=== PATIENT | female | born 1935 | race American Indian/Alaskan Native ===

== ENCOUNTER 2018-05-17 11:09 | Emergency (ER) | payer OTHER, MEDICARE ==
[2018-05-17 11:36] VITALS: BP 145/61
[2018-05-17] MEDS ORDERED: Acetaminophen 325 MG Tab PO ONE (11:50)
[2018-05-17] MEDS ORDERED: Acetaminophen/HYDROcodone 325-5 MG Tab PO ONE (11:50)
--- NOTE | 2018-05-17 15:40 | ER ---
SUBJECTIVE: The patient is an 83-year-old female who comes in with right lower leg pain, began almost a week ago when she hit her right lower leg ankle area on a chair. She went into the clinic this past week I believe on . She had an x-ray and thinks she had an ultrasound but is not sure, but at any rate, whatever she had was all negative, and they told her no fractures or clot. She is on warfarin already. They also put her on Keflex. She has no chest pain or shortness of breath. No other injuries or new trauma. No new falls. No fevers. She comes in today just because it is still very tender. PAST MEDICAL HISTORY: Significant for arrhythmias, she is on warfarin for this; varicose veins with stripping; multiple pregnancies. She has OA. She has hypertension. MEDICATIONS: Current medications include: 1. Diltiazem 180 mg p.o. daily. 2. Warfarin 5 mg p.o. daily. 3. Cephalexin 500 mg every 8 hours was started this last week on ; today would be about day 2-12/03. ALLERGIES: She is allergic to codeine; she does not recall why. Latex causes her rash. SOCIAL HISTORY: No tobacco or alcohol. No other substance abuse. REVIEW OF SYSTEMS: No fevers or chills. No shortness of breath or chest pain. No new falls or trauma. Has continued right lower extremity pain as already discussed in the HPI. No new changes, otherwise. No bowel or bladder changes. No bleeding. OBJECTIVE: Vital Signs: She is afebrile. Heart rate 70, blood pressure is 145/61, respiratory rate 18, and oxygen is 97% on room air. General: Pleasant, smiling, and interactive. Head: Normocephalic and atraumatic. Chest: Clear. Cardiovascular: RRR. Extremities: Examination of bilateral lower extremities. The left is fairly not remarkable. She does have some chronic skin discoloration and changes. The right lower extremity has more tenderness, however. She appears to have mild cellulitis, and she also has chronic skin discoloration and changes. She is able to wiggle her toes and move her ankle. She does not have any compartment syndrome. No lacerations or repairs needed. Sent the patient for a Duplex of the right lower extremity. It did come back negative for DVT. Also, checked her Coumadin level. Her INR is at 1.6. The patient had not taken her pill yet today. EMERGENCY ROOM COURSE: She was given a tablet of Tylenol and one tablet of hydrocodone 5/325. ASSESSMENT: 1. Cellulitis, already on treatment, of right lower extremity. 2. Right lower extremity contusion a week ago. Ultrasound today showing negative clot, already on antibiotics and warfarin. PLAN: Continue with home medications including antibiotics and warfarin. Elevate the leg as much as possible when not in use, but is okay to be active. Can apply Jorge wrap if she desires, apply warm moist packs. Follow up with her PCP early to mid week, this coming week, for recheck or sooner if needed. Return for any emergent issues. [facility] /[id number]
== END 2018-05-17 13:37 | disposition home or self-care (01) ==
LOC: DL.ED 11:09
DX: S80.11XA Contusion of right lower leg, initial encounter (principal); L03.115 Cellulitis of right lower limb; Z79.899 Other long term (current) drug therapy; Z79.01 Long term (current) use of anticoagulants; Z88.5 Allergy status to narcotic agent; Z91.040 Latex allergy status; W22.8XXA Striking against or struck by other objects, initial encounter
CPT/HCPCS: 36415; 85610; 93971; 99284; A9270

== ENCOUNTER 2020-10-29 21:13 | Emergency (ER) | payer BC, MEDICARE ==
--- NOTE | 2020-10-29 21:28 | CT ---
PROCEDURE INFORMATION: Exam: CT Cervical Spine Without Contrast Exam date and time: 10/29/2020 8:58 PM Age: 85 years old Clinical indication: Fall/pain TECHNIQUE: Imaging protocol: Computed tomography images of the cervical spine without contrast. Radiation optimization: All CT scans at this facility use at least one of these dose optimization techniques: automated exposure control; mA and/or kV adjustment per patient size (includes targeted exams where dose is matched to clinical indication); or iterative reconstruction. COMPARISON: No relevant prior studies available. FINDINGS: Bones/joints: No acute fracture or traumatic subluxation. No spondylolisthesis. The atlantooccipital and atlantoaxial articulations are intact. Occipital condyles are intact. Facet joint alignments are maintained. Discs/Spinal canal/Neural foramina: Age-related degenerative disc disease. Multilevel degenerative changes of the cervical spine. Prevertebral Space: No prevertebral soft tissue swelling. Soft tissues: Unremarkable. Lungs: Lung apices are normal. IMPRESSION: No acute fracture or traumatic subluxation.
[2020-10-29 21:33] VITALS: BP 152/63; PULSE 86
--- NOTE | 2020-10-29 21:34 | CT ---
PROCEDURE INFORMATION: Exam: CT Pelvis Without Contrast; Skeletal Exam date and time: 10/29/2020 8:58 PM Age: 85 years old Clinical indication: Other: Fall/pain; Additional info: Fell TECHNIQUE: Imaging protocol: Computed tomography images of the pelvis without contrast. Exam focused on the skeletal structures. Radiation optimization: All CT scans at this facility use at least one of these dose optimization techniques: automated exposure control; mA and/or kV adjustment per patient size (includes targeted exams where dose is matched to clinical indication); or iterative reconstruction. COMPARISON: No relevant prior studies available. FINDINGS: Bones/joints: Diffuse osteopenia. Soft tissues: Sebaceous cyst involving the subcutaneous fat of the right inferior gluteal fold. Measures 3.0 x 2.1 cm. IMPRESSION: No acute abnormality.
--- NOTE | 2020-10-29 21:37 | CT ---
PROCEDURE INFORMATION: Exam: CT Head Without Contrast Exam date and time: 10/29/2020 8:58 PM Age: 85 years old Clinical indication: Other: On coumadin; Additional info: Fell TECHNIQUE: Imaging protocol: Computed tomography of the head without contrast. Radiation optimization: All CT scans at this facility use at least one of these dose optimization techniques: automated exposure control; mA and/or kV adjustment per patient size (includes targeted exams where dose is matched to clinical indication); or iterative reconstruction. COMPARISON: CT Head wo Cont 07/09/2019 5:10 PM FINDINGS: Brain: Small amount of subarachnoid hemorrhage involving the sulci of the right cingulate gyrus. Age-related involutional changes and chronic microvascular ischemic disease. No evidence for acute transcortical infarct. No mass effect or midline shift. No acute intraparenchymal hemorrhage. Basal cisterns are patent. Cerebral ventricles: No ventriculomegaly. Bones/joints: No acute calvarial fracture. Paranasal sinuses: Visualized sinuses are unremarkable. No fluid levels. Mastoid air cells: Visualized mastoid air cells are well aerated. Soft tissues: Right parietal scalp swelling. No radiopaque foreign body. IMPRESSION: 1. Small amount of subarachnoid hemorrhage involving the sulci of the right cingulate gyrus. 2. Right parietal scalp swelling. No radiopaque foreign body. No acute calvarial fracture. The findings were verbally communicated via telephone conference with MIRANDA DANIELS at 9:30 PM ASSISTANT VICE PRESIDENT on 10/29/2020. The findings were acknowledged and understood.
--- NOTE | 2020-10-29 21:47 | EDM.PDOC ---
ED HPI GENERAL MEDICAL PROBLEM - General Chief Complaint: Head Injury Stated Complaint: AMBULANCE Time Seen by Provider: 10/29/20 21:36 Source of Information: Reports: Patient History Limitations: Reports: No Limitations - History of Present Illness INITIAL COMMENTS - FREE TEXT/NARRATIVE: states tripped outside and fell hitting back of head no LOC tried to crawl on knees hard to get up but finally help arrived. - Related Data Allergies Allergy/AdvReac Type Severity Reaction Status Date / Time codeine Allergy Cannot Verified 07/09/19 17:39 Remember latex Allergy Rash Verified 07/09/19 17:39 Home Meds: Home Meds Diltiazem [Tiazac] 180 mg PO DAILY 04/12/15 [History] Warfarin [Coumadin] 5 mg PO DAILY 04/12/15 [History] Past Medical History Cardiovascular History: Reports: Arrhythmia Other Cardiovascular History: varicose veins with stripping Endocrine/Metabolic History: Reports: Other (See Below) Other Endocrine/Metabolic History: prediabetes - Past Surgical History GI Surgical History: Reports: Cholecystectomy Social & Family History - Family History Family Medical History: No Pertinent Family History - Caffeine Use Caffeine Use: Reports: Coffee - Living Situation & Occupation Living situation: Reports: with Family Occupation: Retired ED ROS GENERAL - Review of Systems Review Of Systems: Comprehensive ROS is negative, except as noted in HPI. ED EXAM, HEAD INJURY - Physical Exam Exam: See Below Exam Limited By: No Limitations General Appearance: Alert, WD/WN, Mild Distress, Other (DISCOMFORT) Head: Scalp Lacerations, Scalp Swelling, Scalp Tenderness, Other ([place] REGION). No: Contreras's Sign, Raccoon Eyes Nexus Criteria: No: Posterior, Midline Cervical Tenderness, Evidence of Intoxication, Altered Level of Consciousness, Focal Neurological Deficit, Painful Distraction Injuries Eyes: Bilateral Eye: PERRL (PUPILS ESS er @ 4MM) Ears: Hearing Grossly Normal Throat/Mouth: Normal Voice, No Airway Compromise Neck: Non-Tender, Full Range of Motion Respiratory: No Respiratory Distress Cardiovascular: Regular Rate, Rhythm GI/Abdominal Exam: Soft, Non-Tender (Female) Exam: Deferred Rectal (Female) Exam: Deferred Extremities: Other (knees without abrasion, minimal swelling, ROM without problem, NV wnl) Neurologic: No Motor/Sensory Deficits, Alert, Normal Mood/Affect, Oriented x 3 Skin: Normal Color, Warm/Dry - [place] Coma Score Best Eye Response ([place]): (4) Open Spontaneously Best Verbal Response (Smita): (5) Oriented Best Motor Response ([place]mita): (6) Obeys Commands [place] Total: 15 ED LACERATION/WOUND & LEONARDA PROC - Laceration/Wound Repair Occipital Lac/wound length in cm: 1 (occiput region) Appearance: Subcutaneous, Irregular, Clean Skin Prep: Chlorhexidine (Hibiciens) Saline irrigation (cc's): 20 Exploration/Debridement/Repair: Wound Explored, In a Bloodless Field, No Foreign Material Found Closed with: Nicholas # of Sutures: 2 (nicholas) Sterile Dressing Applied: None Tetanus Status Addressed: Yes Complications: No Course - Vital Signs Last Recorded V/S: Last Vital Signs Temp 36.9 C 10/29/20 21:00 Pulse 86 10/29/20 21:00 Resp 18 10/29/20 21:00 BP 152/63 H 10/29/20 21:00 Pulse Ox 96 10/29/20 21:00 - Orders/Labs/Meds Orders: Active Orders 24 hr Category Date Time Status INR,PT,PROTHROMBIN TIME [COAG] Stat Lab 10/29/20 21:56 Ordered PTT,PARTIAL THROMBOPLSTIN TIME [COAG] Stat Lab 10/29/20 21:56 Ordered Phytonadione [AquaMephyton] 10 mg Med 10/29/20 22:21 Ordered Sodium Chloride 0.9% [Normal Saline] 50 ml IV NOW Labs: Laboratory Tests 10/29/20 10/29/20 Range/Units 21:40 21:40 WBC 7.8 (5.0-10.0) 10^3/uL RBC 4.29 (4.2-5.4) 10^6/uL Hgb 11.9 L (12.0-16.0) g/dL Hct 36.6 L (37.0-47.0) % MCV 85.3 D (80-100) fL MCH 27.7 (27.0-34.0) pg MCHC 32.5 L (33.0-35.0) g/dL Plt Count 168 (150-450) 10^3/uL Neut % (Auto) 80.1 H (42.2-75.2) % Lymph % (Auto) 11.4 L (20.5-50.1) % Eagle % (Auto) 7.6 (2-8) % Eos % (Auto) 0.6 L (1.0-3.0) % Baso % (Auto) 0.3 (0.0-1.0) % Sodium 137 (136-145) mmol/L Potassium 3.6 (3.5-5.1) mmol/L Chloride 103 (98-107) mmol/L Carbon Dioxide 26 (21-32) mmol/L Anion Gap 11.6 (7-13) mEq/L BUN 9 (7-18) mg/dL Creatinine 0.64 (0.55-1.02) mg/dL Est Cr Clr Drug Dosing 50.83 mL/min Estimated GFR (MDRD) > 60 BUN/Creatinine Ratio 14.1 (No establ ref range) Glucose 142 H (74-99) mg/dL Calcium 8.7 (8.5-10.1) mg/dL Total Bilirubin 0.4 (0.2-1.0) mg/dL AST 28 (15-37) U/L ALT 25 (14-59) U/L Alkaline Phosphatase 150 H (46-116) U/L Total Protein 7.4 (6.4-8.2) g/dL Albumin 3.2 L (3.4-5.0) g/dL Globulin 4.2 Albumin/Globulin Ratio 0.76 - Re-Assessments/Exams Free Text/Narrative Re-Assessment/Exam: 10/29/20 22:[address] Slime WEBBER @ [facility] who kindly accepted pt. Departure - Departure Time of Disposition: 22:23 Disposition: DC/Tfer to Acute Hospital 02 Condition: Fair Clinical Impression: Subarachnoid hemorrhage Occipital scalp laceration Qualifiers: Encounter type: initial encounter Qualified Code(s): S01.01XA - Laceration without foreign body of scalp, initial encounter - Discharge Information Forms: Interfacility Transfer EMTALA Sepsis Event Note (ED) - Evaluation Sepsis Screening Result: No Definite Risk - Focused Exam Vital Signs: Vital Signs Temp Pulse Resp BP Pulse Ox 10/29/20 21:00 36.9 C 86 18 152/63 H 96 - My Orders Last 24 Hours: My Active Orders 10/29/20 21:56 INR,PT,PROTHROMBIN TIME [COAG] Stat PTT,PARTIAL THROMBOPLSTIN TIME [COAG] Stat 10/29/20 22:21 Phytonadione [AquaMephyton] 10 mg Sodium Chloride 0.9% [Normal Saline] 50 ml IV NOW - Assessment/Plan Last 24 Hours: My Active Orders 10/29/20 21:56 INR,PT,PROTHROMBIN TIME [COAG] Stat PTT,PARTIAL THROMBOPLSTIN TIME [COAG] Stat 10/29/20 22:21 Phytonadione [AquaMephyton] 10 mg Sodium Chloride 0.9% [Normal Saline] 50 ml I V NOW
[2020-10-29 22:17] LABS: ANION GAP 11.6 mEq/L (7-13); CHLORIDE,CL 103 mmol/L (98-107); SODIUM,NA 137 mmol/L (136-145)
[2020-10-29] MEDS ORDERED: Phytonadione 10 MG in Sodium Chloride 0.9% 50 ML IV ONE (22:21)
[2020-10-29 22:36] LABS: PTT,PARTIAL THROMBOPLSTIN TIME 30.4 SEC (22.0-34.0)
== END 2020-10-29 23:00 ==
LOC: DL.ED 21:13
DX: S06.6X0A Traumatic subarachnoid hemorrhage without loss of consciousness, initial encounter (principal); S01.01XA Laceration without foreign body of scalp, initial encounter; Z88.5 Allergy status to narcotic agent; Z91.040 Latex allergy status; Z79.01 Long term (current) use of anticoagulants; Z79.899 Other long term (current) drug therapy; Z20.828 Contact with and (suspected) exposure to other viral communicable diseases; W01.10XA Fall on same level from slipping, tripping and stumbling with subsequent striking against unspecified object, initial encounter
CPT/HCPCS: 12001; 36415; 70450; 72125; 72192; 80053; 85025; 85610; 85730; 87635; 96365; 99285; J3430; U0002

== ENCOUNTER 2024-01-05 03:23 | Emergency (ER) | payer BC, MEDICARE ==
[2024-01-05] MEDS: Sodium Chloride 0.9% 10 ML Syringe FLUSH PRN (03:32)
[2024-01-05 03:39] LABS: BASOPHILS PERCENT AUTO 0.2 % (0.0-1.0); EOSINOPHILS PERCENT AUTO 1.5 % (1.0-3.0); HEMATOCRIT 34.8 % (37.0-47.0); HEMOGLOBIN 10.7 g/dL (12.0-16.0); LYMPHOCYTES PERCENT AUTO 12.3 % (20.5-50.1); MEAN CORPUSCULAR HEMOGLOBIN 25.4 pg (27.0-34.0); MEAN CORPUSCULAR HGB CONC 30.7 g/dL (33.0-35.0); MEAN CORPUSCULAR VOLUME 82.7 fL (80-100); MONOCYTES PERCENT AUTO 9.5 % (2-8); NEUTROPHILS PERCENT AUTO 76.5 % (42.2-75.2); PLATELET COUNT,PLT 238 10^3/uL (150-450); RED BLOOD CELL COUNT 4.21 10^6/uL (4.2-5.4); WHITE BLOOD CELL COUNT,WBC 5.9 10^3/uL (5.0-10.0)
[2024-01-05 03:45] VITALS: BP 151/90; PULSE 95
[2024-01-05 03:52] LABS: A/G RATIO 0.63; ALANINE AMINOTRANSFERASE,ALT 16 U/L (14-59); ALBUMIN 2.9 g/dL (3.4-5.0); ALKALINE PHOSPHATASE 90 U/L (46-116); ANION GAP 10.8 mEq/L (7-13); ASPARTATE AMNIOTRANSFERASE,AST 20 U/L (15-37); BILIRUBIN TOTAL 0.7 mg/dL (0.2-1.0); BLOOD UREA NITROGEN,BUN 4 mg/dL (7-18); CALCIUM 8.6 mg/dL (8.5-10.1); CARBON DIOXIDE,CO2 28 mmol/L (21-32); CHLORIDE,CL 102 mmol/L (98-107); ESTIMATED GFR 90 mL/min (>=60); GLUCOSE RANDOM 121 mg/dL (70-99); LIPASE 21 U/L (16-77); MAGNESIUM 1.8 mg/dL (1.8-2.4); POTASSIUM,K 3.8 mmol/L (3.5-5.1); PROTEIN TOTAL,TP 7.5 g/dL (6.4-8.2); SODIUM,NA 137 mmol/L (136-145)
[2024-01-05 03:56] LABS: INR 2.2 (0.9-1.2); PROTHROMBIN TIME 21.6 SEC (9.0-12.0)
[2024-01-05 04:01] LABS: B-TYPE NATRIURETIC PEPTIDE,BNP 32 pg/ml (0-100)
[2024-01-05 04:26] LABS: CORONAVIRUS COVID-19 NAA NEGATIVE (NEGATIVE); INFLUENZA A NAA NEGATIVE (NEGATIVE); INFLUENZA B NAA NEGATIVE (NEGATIVE)
[2024-01-05 04:43] LABS: APPEARANCE,URINE CLEAR (CLEAR); BILIRUBIN,URINE NEGATIVE (NEGATIVE); COLOR,URINE YELLOW (YELLOW); GLUCOSE,URINE NEGATIVE (NEGATIVE); KETONES,URINE 15 (NEGATIVE); LEUKOCYTE ESTERASE,URINE TRACE (NEGATIVE); NITRITE,URINE NEGATIVE (NEGATIVE); OCCULT BLOOD,URINE TRACE-INTACT (NEGATIVE); PH,URINE 7.5 (5.0-9.0); PROTEIN,URINE NEGATIVE (NEGATIVE); UROBILINOGEN,URINE 0.2 mg/dL (0.2-1.0)
[2024-01-05 04:49] LABS: AMORPHOUS SEDIMENT,URINE MODERATE /HPF (NOT SEEN); BACTERIA,URINE FEW /HPF (0-FEW/HPF); EPITHELIAL CELLS,URINE FEW /HPF (NOT SEEN); MUCUS,URINE FEW /LPF (NOT SEEN); RBC,URINE 0-5 /HPF (0-5); WBC,URINE 0-5 /HPF (0-5/HPF)
[2024-01-05] MEDS: Ketorolac 30 MG/ML SDV IVPUSH ONE (05:03)
== END 2024-01-05 05:15 | disposition home or self-care (01) ==
LOC: DL.ED 03:23
DX: M94.0 Chondrocostal junction syndrome [Tietze] (principal); Z88.8 Allergy status to other drugs, medicaments and biological substances; Z91.040 Latex allergy status; Z79.2 Long term (current) use of antibiotics; Z79.01 Long term (current) use of anticoagulants; Z90.49 Acquired absence of other specified parts of digestive tract
CPT/HCPCS: 0240U; 36415; 71046; 80053; 81001; 83690; 83735; 83880; 84484; 85025; 85610; 86140; 87086; 87088; 87186; 93005; 93010; 96374; 99284; 99285; J1885; J3490

== ENCOUNTER 2024-01-14 20:59 | Inpatient (IN) | payer MEDICARE ==
[2024-01-14 21:48] LABS: BASOPHILS PERCENT AUTO 0.1 % (0.0-1.0); EOSINOPHILS PERCENT AUTO 0.1 % (1.0-3.0); HEMATOCRIT 33.8 % (37.0-47.0); HEMOGLOBIN 10.7 g/dL (12.0-16.0); LYMPHOCYTES PERCENT AUTO 5.3 % (20.5-50.1); MEAN CORPUSCULAR HEMOGLOBIN 25.8 pg (27.0-34.0); MEAN CORPUSCULAR HGB CONC 31.7 g/dL (33.0-35.0); MEAN CORPUSCULAR VOLUME 81.4 fL (80-100); MONOCYTES PERCENT AUTO 6.9 % (2-8); NEUTROPHILS PERCENT AUTO 87.6 % (42.2-75.2); PLATELET COUNT,PLT 232 10^3/uL (150-450); RED BLOOD CELL COUNT 4.15 10^6/uL (4.2-5.4); WHITE BLOOD CELL COUNT,WBC 7.5 10^3/uL (5.0-10.0)
[2024-01-14] MEDS: Sodium Chloride 0.9% 10 ML Syringe FLUSH PRN (21:57)
[2024-01-14 22:16] LABS: C-REACTIVE PROTEIN 2.9 ng/dL (<=0.50)
[2024-01-14 22:18] LABS: PROTHROMBIN TIME 29.3 SEC (9.0-12.0); PTT,PARTIAL THROMBOPLSTIN TIME 38.8 SEC (22.0-34.0)
[2024-01-14 22:20] LABS: A/G RATIO 0.7; ANION GAP 11.5 mEq/L (7-13); BILIRUBIN TOTAL 0.7 mg/dL (0.2-1.0); BUN/CREATININE RATIO 9.4 (No establ ref range); CALCIUM 8.2 mg/dL (8.5-10.1); CREATININE 0.53 mg/dL (0.55-1.02); EST CRCL DRUG DOSING (CG) 51.69 mL/min; POTASSIUM,K 3.5 mmol/L (3.5-5.1); PROTEIN TOTAL,TP 7.3 g/dL (6.4-8.2)
[2024-01-14] MEDS: Acetaminophen 325 MG Tab PO ONE (23:14)
[2024-01-14] MEDS: Sodium Chloride 0.9% 1,000 ML IV ONE ×2 (23:14→23:15)
[2024-01-14 23:23] LABS: CORONAVIRUS COVID-19 NAA NEGATIVE (NEGATIVE); INFLUENZA A NAA NEGATIVE (NEGATIVE); INFLUENZA B NAA NEGATIVE (NEGATIVE); RESPIRATORY SYNCYTIAL VIR NAA NEGATIVE (NEGATIVE)
[2024-01-14] MEDS ORDERED: Sennosides/Docusate Sodium 50-8.6 MG Tab PO PRN (23:48)
[2024-01-14] MEDS ORDERED: Ondansetron 4 MG/2 ML SDV IVPUSH PRN (23:48)
[2024-01-14] MEDS ORDERED: Albuterol/Ipratropium 3.0-0.5 MG/3 ML Neb Soln NEB PRN (23:48)
[2024-01-14] MEDS ORDERED: Ketorolac 30 MG/ML SDV IVPUSH PRN (23:48)
[2024-01-14] MEDS ORDERED: Polyethylene Glycol 3350 Powder 17 GM Packet PO PRN (23:48)
[2024-01-14] MEDS ORDERED: Acetaminophen 325 MG Tab PO PRN (23:48)
[2024-01-14] MEDS ORDERED: Magnesium Hydroxide 400 MG/5 ML Susp 30 ML Cup PO PRN (23:48)
[2024-01-14] MEDS ORDERED: Melatonin 3 MG Tab PO PRN (23:51)
[2024-01-14] MEDS ORDERED: traMADol 50 MG Tab PO PRN (23:51)
[2024-01-14] MEDS ORDERED: hydrALAZINE 20 MG/ML SDV IVPUSH PRN (23:54)
[2024-01-14] MEDS: cefTRIAXone 1 GM Vial IVPUSH ONE (23:54)
[2024-01-14] MEDS: methylPREDNISolone Sodium Succinate 125 MG/2 ML SDV IVPUSH ONE (23:55)
[2024-01-15 00:09] LABS: LACTIC ACID 0.6 mmol/L (0.4-2.0)
[2024-01-15 00:10] LABS: APPEARANCE,URINE CLEAR (CLEAR); BILIRUBIN,URINE NEGATIVE (NEGATIVE); COLOR,URINE YELLOW (YELLOW); GLUCOSE,URINE NEGATIVE (NEGATIVE); KETONES,URINE 40 (NEGATIVE); LEUKOCYTE ESTERASE,URINE NEGATIVE (NEGATIVE); NITRITE,URINE NEGATIVE (NEGATIVE); OCCULT BLOOD,URINE TRACE-INTACT (NEGATIVE); PROTEIN,URINE NEGATIVE (NEGATIVE)
[2024-01-15 00:12] LABS: BACTERIA,URINE FEW /HPF (0-FEW/HPF); EPITHELIAL CELLS,URINE OCCASIONAL /HPF (NOT SEEN); MUCUS,URINE RARE /LPF (NOT SEEN); RBC,URINE 0-5 /HPF (0-5); WBC,URINE 0-5 /HPF (0-5/HPF)
[2024-01-15 00:18] LABS: HEMOGLOBIN A1C 5.7 % (<5.7)
[2024-01-15 00:18] LABS: T4 FREE 1.34 ng/dL (0.76-1.46); TSH ULTRASENSITIVE 0.84 uIU/mL (0.36-3.74)
[2024-01-15] MEDS: Furosemide 20 MG/2 ML VIAL IVPUSH STA (01:53)
[2024-01-15] MEDS: Ketorolac 30 MG/ML SDV IVPUSH ONE (01:57)
[2024-01-15] MEDS: Pantoprazole 40 MG Vial IVPUSH ONE (02:00)
[2024-01-15] MEDS: Azithromycin 500 MG in Sodium Chloride 0.9% 250 ML IV ONE (02:03)
[2024-01-15] MEDS: Pantoprazole 40 MG Tab.CR PO SCH (06:03)
[2024-01-15 06:41] LABS: HEMATOCRIT 37.1 % (37.0-47.0); HEMOGLOBIN 11.8 g/dL (12.0-16.0); LYMPHOCYTES PERCENT AUTO 7.6 % (20.5-50.1); MEAN CORPUSCULAR HEMOGLOBIN 25.9 pg (27.0-34.0); MEAN CORPUSCULAR HGB CONC 31.8 g/dL (33.0-35.0); MEAN CORPUSCULAR VOLUME 81.5 fL (80-100); MONOCYTES PERCENT AUTO 0.9 % (2-8); NEUTROPHILS PERCENT AUTO 91.5 % (42.2-75.2); PLATELET COUNT,PLT 258 10^3/uL (150-450); RED BLOOD CELL COUNT 4.55 10^6/uL (4.2-5.4); WHITE BLOOD CELL COUNT,WBC 5.5 10^3/uL (5.0-10.0)
[2024-01-15 07:02] LABS: INR 3.3 (0.9-1.2); PROTHROMBIN TIME 31.4 SEC (9.0-12.0)
[2024-01-15 07:04] LABS: ALBUMIN 2.6 g/dL (3.4-5.0); ANION GAP 9.5 mEq/L (7-13); BILIRUBIN TOTAL 0.6 mg/dL (0.2-1.0); BUN/CREATININE RATIO 8.5 (No establ ref range); C-REACTIVE PROTEIN 4.7 ng/dL (<=0.50); CALCIUM 8.5 mg/dL (8.5-10.1); CREATININE 0.47 mg/dL (0.55-1.02); EST CRCL DRUG DOSING (CG) 58.29 mL/min; MAGNESIUM 1.8 mg/dL (1.8-2.4); POTASSIUM,K 3.5 mmol/L (3.5-5.1); PROTEIN TOTAL,TP 7.3 g/dL (6.4-8.2)
[2024-01-15 07:12] LABS: A/G RATIO 0.55
[2024-01-15] MEDS: Diltiazem 180 MG Cap.CD PO SCH (08:44)
[2024-01-15] MEDS: Azithromycin 500 MG in Sodium Chloride 0.9% 250 ML IV SCH (08:44)
[2024-01-15] MEDS: guaiFENesin 600 MG Tab.ER PO SCH (08:45)
[2024-01-15] MEDS: cefTRIAXone 1 GM Vial IVPUSH SCH (08:49)
[2024-01-15] MEDS ORDERED: Potassium Chloride 10 MEQ Tab.ER PO ONE (11:00)
[2024-01-15] MEDS: guaiFENesin/Dextromethorphan 100-10 MG/5 ML Soln 5 ML Cup PO PRN (20:40)
[2024-01-15] MEDS: Metoprolol Tartrate 5 MG/5 ML SDV IVPUSH PRN (22:23)
[2024-01-16 06:35] LABS: HEMATOCRIT 36.3 % (37.0-47.0); HEMOGLOBIN 11.6 g/dL (12.0-16.0); LYMPHOCYTES PERCENT AUTO 9.5 % (20.5-50.1); MEAN CORPUSCULAR HEMOGLOBIN 25.7 pg (27.0-34.0); MEAN CORPUSCULAR VOLUME 80.5 fL (80-100); MONOCYTES PERCENT AUTO 6.5 % (2-8); PLATELET COUNT,PLT 289 10^3/uL (150-450); RED BLOOD CELL COUNT 4.51 10^6/uL (4.2-5.4)
[2024-01-16 06:50] LABS: ALBUMIN 2.4 g/dL (3.4-5.0); ANION GAP 9.4 mEq/L (7-13); BILIRUBIN TOTAL 0.4 mg/dL (0.2-1.0); BUN/CREATININE RATIO 16.1 (No establ ref range); CALCIUM 8.7 mg/dL (8.5-10.1); CREATININE 0.56 mg/dL (0.55-1.02); EST CRCL DRUG DOSING (CG) 48.92 mL/min; POTASSIUM,K 3.4 mmol/L (3.5-5.1); PROTEIN TOTAL,TP 6.8 g/dL (6.4-8.2)
[2024-01-16 06:59] LABS: INR 4.2 (0.9-1.2); PROTHROMBIN TIME 39.8 SEC (9.0-12.0)
[2024-01-16 07:02] LABS: A/G RATIO 0.55
[2024-01-16 12:39] VITALS: BP 144/52; PULSE 67
== END 2024-01-16 14:00 | disposition home or self-care (01) | DRG 205 ==
LOC: DL.ED 20:59 → DL.MS 23:29
PROVIDERS: ADMIT Internal Medicine; ATTEND Internal Medicine
DX: R07.89 Other chest pain (principal); M94.0 Chondrocostal junction syndrome [Tietze]; J18.9 Pneumonia, unspecified organism; E87.1 Hypo-osmolality and hyponatremia; I48.20 Chronic atrial fibrillation, unspecified; E87.8 Other disorders of electrolyte and fluid balance, not elsewhere classified; M19.90 Unspecified osteoarthritis, unspecified site; D50.9 Iron deficiency anemia, unspecified; R73.9 Hyperglycemia, unspecified; E88.09 Other disorders of plasma-protein metabolism, not elsewhere classified; R53.1 Weakness; Z79.01 Long term (current) use of anticoagulants; Z88.5 Allergy status to narcotic agent; Z91.040 Latex allergy status; Z79.899 Other long term (current) drug therapy; Z90.49 Acquired absence of other specified parts of digestive tract; Z11.52 Encounter for screening for COVID-19; Z86.718 Personal history of other venous thrombosis and embolism
CPT/HCPCS: 0241U; 36415; 71045; 80053; 81001; 82306; 83036; 83605; 83735; 83880; 84439; 84443; 84484; 85025; 85610; 85730; 86140; 87040; 93005; 93010; 94010; 94060; 94667; 94668; 94760; 97161-GP; 97165-GO; 99223; 99232; 99239; 99284; 99285; A9270-GY; C9113; J0456; J0696; J1885; J1940; J2930; J3490; J7030; J7050

== ENCOUNTER 2024-03-24 22:27 | Emergency (ER) | payer MEDICARE ==
[2024-03-24 23:08] VITALS: BP 161/90; PULSE 102
[2024-03-25] MEDS: Acetaminophen 325 MG Tab PO ONE (00:08)
== END 2024-03-25 00:08 | disposition home or self-care (01) ==
LOC: DL.ED 22:27
DX: S80.01XA Contusion of right knee, initial encounter (principal); S70.01XA Contusion of right hip, initial encounter; Z86.16 Personal history of COVID-19; Z79.899 Other long term (current) drug therapy; Z79.01 Long term (current) use of anticoagulants; Z88.5 Allergy status to narcotic agent; Z91.040 Latex allergy status; W01.0XXA Fall on same level from slipping, tripping and stumbling without subsequent striking against object, initial encounter
CPT/HCPCS: 73502; 73560; 99284; A9270; 99283

== ENCOUNTER 2024-09-11 13:37 | Emergency (ER) | payer MEDICARE, OTHER ==
[2024-09-11 13:30] VITALS: BP 152/94; PULSE 101
[2024-09-11 13:36] LABS: BASOPHILS PERCENT AUTO 0.3 % (0.0-1.0); EOSINOPHILS PERCENT AUTO 0.2 % (1.0-3.0); HEMATOCRIT 31.2 % (37.0-47.0); HEMOGLOBIN 9.6 g/dL (12.0-16.0); MEAN CORPUSCULAR HEMOGLOBIN 25.3 pg (27.0-34.0); MEAN CORPUSCULAR HGB CONC 30.8 g/dL (33.0-35.0); MEAN CORPUSCULAR VOLUME 82.1 fL (80-100); NEUTROPHILS PERCENT AUTO 77.5 % (42.2-75.2); PLATELET COUNT,PLT 237 10^3/uL (150-450); WHITE BLOOD CELL COUNT,WBC 6.1 10^3/uL (5.0-10.0)
[2024-09-11] MEDS: Morphine 4 MG/ML Syringe IVPUSH ONE (13:40)
[2024-09-11] MEDS: Ondansetron 4 MG/2 ML SDV IVPUSH ONE (13:40)
[2024-09-11 13:51] LABS: INR 2.1 (0.9-1.2)
[2024-09-11 13:56] LABS: A/G RATIO 0.63; BILIRUBIN TOTAL 0.8 mg/dL (0.2-1.0); BUN/CREATININE RATIO 12.1 (No establ ref range); CALCIUM 8.8 mg/dL (8.5-10.1); CREATININE 0.58 mg/dL (0.55-1.02); EST CRCL DRUG DOSING (CG) 52.01 mL/min; PROTEIN TOTAL,TP 7.8 g/dL (6.4-8.2)
[2024-09-11 14:11] LABS: APPEARANCE,URINE CLEAR (CLEAR); BILIRUBIN,URINE NEGATIVE (NEGATIVE); COLOR,URINE YELLOW (YELLOW); GLUCOSE,URINE NEGATIVE (NEGATIVE); KETONES,URINE NEGATIVE (NEGATIVE); LEUKOCYTE ESTERASE,URINE TRACE (NEGATIVE); NITRITE,URINE NEGATIVE (NEGATIVE); OCCULT BLOOD,URINE NEGATIVE (NEGATIVE); PROTEIN,URINE NEGATIVE (NEGATIVE)
[2024-09-11 14:23] LABS: BACTERIA,URINE FEW /HPF (0-FEW/HPF); EPITHELIAL CELLS,URINE FEW /HPF (NOT SEEN); MUCUS,URINE OCCASIONAL /LPF (NOT SEEN); RBC,URINE 0-5 /HPF (0-5); WBC,URINE 0-5 /HPF (0-5/HPF)
== END 2024-09-11 16:08 | disposition home or self-care (01) ==
LOC: DL.ED 13:37
DX: S66.912A Strain of unspecified muscle, fascia and tendon at wrist and hand level, left hand, initial encounter (principal); S76.012A Strain of muscle, fascia and tendon of left hip, initial encounter; Z86.16 Personal history of COVID-19; Z90.49 Acquired absence of other specified parts of digestive tract; Z79.899 Other long term (current) drug therapy; Z79.01 Long term (current) use of anticoagulants; Z88.5 Allergy status to narcotic agent; Z91.040 Latex allergy status; W23.0XXA Caught, crushed, jammed, or pinched between moving objects, initial encounter
CPT/HCPCS: 36415; 73110; 73502; 80053; 81001; 85025; 85610; 87086; 87088; 87186; 96374; 96375; 99284; J2270; J2405; 99283